=== PATIENT | male | born 1985 | race Caucasian/White ===

== ENCOUNTER 2016-11-14 06:57 | Day surgery (SDC) | payer OTHER ==
[~2016-11-14] VITALS: Ht 170.2 cm; Wt 100.1 kg
[~2016-11-14 06:57] MED LIST: None per pt; OXYC-306 PO
[2016-11-14] MEDS ORDERED: EPINEPHRINE 1 MG/ML, 1ML ONE (07:03)
[2016-11-14] MEDS ORDERED: NEOSPORIN OINT, 15GM ONE (07:03)
[2016-11-14] MEDS ORDERED: BUPIVACAINE/PF 0.5% ONE (07:03)
[2016-11-14 08:01] VITALS: BP 146/80
[2016-11-14] MEDS ORDERED: LIDOCAINE 1%, 2ML ONE (08:08)
[2016-11-14] MEDS ORDERED: LACTATED RINGERS 1,000 ML IV SCH (08:19)
[2016-11-14] MEDS ORDERED: LIDOCAINE 1%, 2ML SQ PRN (08:30)
[2016-11-14] MEDS ORDERED: FENTANYL PF 100 MCG/2ML ONE ×3 (09:30→10:54)
[2016-11-14] MEDS ORDERED: MIDAZOLAM 1 MG/ML, 2ML ONE (09:30)
[2016-11-14] MEDS ORDERED: ONDANSETRON 2MG/ML, 2ML ONE (09:31)
[2016-11-14] MEDS ORDERED: SUCCINYLCHOLINE 20 MG/ML, 10ML ONE (09:31)
[2016-11-14] MEDS ORDERED: ROCURONIUM 10 MG/ML ONE (09:31)
[2016-11-14] MEDS ORDERED: DEXAMETHASONE 4 MG/ML, 1ML ONE (09:31)
[2016-11-14] MEDS ORDERED: NEOSTIGMINE 1 MG/ML, 10ML ONE (09:31)
[2016-11-14] MEDS ORDERED: PROPOFOL 10 MG/ML, 50ML ONE (09:31)
[2016-11-14] MEDS ORDERED: GLYCOPYRROLATE 0.2MG/1ML ONE (09:31)
[2016-11-14] MEDS ORDERED: GENTAMICIN 80 MG/2 ML ONE (09:44)
[2016-11-14] MEDS ORDERED: KETAMINE 10 MG/ML, 20ML ONE (09:53)
[2016-11-14] MEDS ORDERED: ALBUTEROL SULFATE 2.5 MG/3 ML NPPB PRN (10:00)
[2016-11-14] MEDS ORDERED: KETOROLAC 30 MG/1 ML IV PRN (10:00)
[2016-11-14] MEDS ORDERED: PROMETHAZINE 25 MG/ML, 1ML IV PRN (10:00)
[2016-11-14] MEDS ORDERED: METOCLOPRAMIDE 5 MG/ML, 2ML IV PRN (10:00)
[2016-11-14] MEDS ORDERED: OXYcodone 5 MG/5 ML ORAL.SOL UDC PO PRN (10:00)
[2016-11-14] MEDS ORDERED: MEPERIDINE/PF 25MG/0.5ML IVPush PRN (10:00)
[2016-11-14] MEDS ORDERED: hydrALAzine 20 MG/ML, 1ML IV PRN (10:00)
[2016-11-14] MEDS ORDERED: ACETAMINOPHEN 325 MG TABLET PO PRN (10:00)
[2016-11-14] MEDS ORDERED: ONDANSETRON 2MG/ML, 2ML IVPush PRN (10:00)
[2016-11-14] MEDS ORDERED: LABETALOL 5MG/ML, 20ML IV PRN (10:00)
[2016-11-14] MEDS ORDERED: HYDROcodone/APAP 7.5-325MG/15ML UDC PO PRN (10:00)
[2016-11-14] MEDS ORDERED: METOPROLOL 1 MG/ML, 5ML IV PRN (10:00)
[2016-11-14] MEDS ORDERED: MIDAZOLAM 1 MG/ML, 2ML IV PRN (10:00)
[2016-11-14] MEDS ORDERED: EPHEDRINE 50 MG/ML, 1ML IVPush PRN (10:00)
[2016-11-14] MEDS ORDERED: OXYcodone 5 MG/5 ML ORAL.SOL UDC ONE (10:54)
[2016-11-14] MEDS: FENTANYL PF 100 MCG/2ML IV PRN ×2 (10:56→11:06)
[2016-11-14] MEDS ORDERED: KETOROLAC 30 MG/1 ML ONE (10:57)
[2016-11-14] MEDS ORDERED: LABETALOL 5MG/ML, 20ML ONE (11:16)
[2016-11-14] MEDS ORDERED: HYDROmorphone 2 MG/ML, 1ML ONE (11:18)
[2016-11-14] MEDS: HYDROmorphone 1 MG/ML, 1ML IV PRN ×3 (11:20→11:39)
[2016-11-14] MEDS ORDERED: hydrALAzine 20 MG/ML, 1ML ONE (11:35)
== END 2016-11-14 12:55 ==
LOC: OUT 06:57
PROVIDERS: ATTEND Urology
DX: C62.91 Malignant neoplasm of right testis, unspecified whether descended or undescended (principal)
CPT/HCPCS: 54530; 88309; J0171; J0330; J1100; J1170; J1580; J1885; J2250; J2405; J2704; J2710; J3010; J3490; J7120

== ENCOUNTER 2016-12-13 01:04 | Emergency (ER) | payer OTHER ==
[~2016-12-13] VITALS: Ht 170.2 cm; Wt 101.1 kg
[2016-12-13] MEDS ORDERED: OXYcodone/APAP 5/325MG TABLET PO ONE (01:30)
[2016-12-13] MEDS ORDERED: ONDANSETRON ODT 4 MG PO ONE (01:30)
[2016-12-13] MEDS ORDERED: IBUPROFEN 200 MG TABLET PO ONE (01:30)
[2016-12-13] MEDS ORDERED: DIAZEPAM 5 MG TABLET PO ONE (01:30)
[2016-12-13] MEDS ORDERED: ONDANSETRON ODT 4 MG ONE (01:40)
[2016-12-13] MEDS ORDERED: IBUPROFEN 200 MG TABLET ONE (01:41)
[2016-12-13] MEDS ORDERED: OXYcodone/APAP 5/325MG TABLET ONE (01:41)
[2016-12-13] MEDS ORDERED: DIAZEPAM 5 MG TABLET ONE ×2 (01:42)
[2016-12-13 01:50] LABS: HEMATOCRIT 44.4 % (39.2-51.8); HEMOGLOBIN 15.4 g/dL (13.7-18.0); WHITE BLOOD COUNT 10.1 x10^3/uL (3.4-10)
[2016-12-13 02:00] LABS: ASPARTATE AMINO TRANSFERASE 25 U/L (15-37); BLOOD UREA NITROGEN 17 mg/dL (7-18)
[2016-12-13 03:19] VITALS: BP 125/80
== END 2016-12-13 03:36 | disposition home or self-care (01) ==
LOC: ED 03:22
DX: M54.5 Low back pain (principal)
CPT/HCPCS: 36415; 72110; 80053; 81003; 85025; 99285; Q0162

== ENCOUNTER → 2017-01-04 | Outpatient (CLI) | payer OTHER ==
[~2017-01-04] MED LIST changes: +GADOBUTROL 10 MMOL/10 ML PFS ONE
== END | disposition home or self-care (01) ==
LOC: RAD 13:48
PROVIDERS: ATTEND Internal Medicine Hematology & Oncology
DX: G93.5 Compression of brain (principal); C62.11 Malignant neoplasm of descended right testis
CPT/HCPCS: 70553; A9585

== ENCOUNTER 2017-01-25 12:16 | Day surgery (SDC) | payer OTHER ==
[~2017-01-25] VITALS: Ht 170.2 cm; Wt 97.4 kg
[~2017-01-25 12:16] MED LIST changes: -GADOBUTROL 10 MMOL/10 ML PFS ONE; +OXYC1TAB8 PO
[2017-01-25 12:54] VITALS: BP 152/99
[2017-01-25] MEDS ORDERED: SODIUM CHLORIDE 0.9% 1,000 ML IV SCH (12:56)
[2017-01-25] MEDS ORDERED: CEFAZOLIN PMX 1GM/50ML 50 ML ONE (12:59)
[2017-01-25] MEDS ORDERED: FENTANYL PF 100 MCG/2ML ONE (16:08)
[2017-01-25] MEDS ORDERED: FLUMAZENIL 0.1 MG/1 ML, 5ML ONE (16:08)
[2017-01-25] MEDS ORDERED: NALOXONE 1 MG/ML, 2ML ONE (16:08)
[2017-01-25] MEDS ORDERED: MIDAZOLAM 1 MG/ML, 5ML ONE (16:08)
[2017-01-25] MEDS ORDERED: LIDOCAINE 2%, 20ML ONE (16:09)
== END 2017-01-25 18:10 ==
LOC: OUT 12:16
PROVIDERS: ATTEND Nurse Practitioner
DX: Z45.2 Encounter for adjustment and management of vascular access device (principal); C62.90 Malignant neoplasm of unspecified testis, unspecified whether descended or undescended
CPT/HCPCS: 36561; 76937; 77001; 99156; 99157; C1788; C1894; J0690; J1642; J2250; J3010; J3490; J2310

== ENCOUNTER → 2017-03-08 | Outpatient (CLI) | payer OTHER | END | disposition home or self-care (01) | LOC: CFH 11:37 | PROVIDERS: ATTEND Internal Medicine Hematology & Oncology | DX: C78.01 Secondary malignant neoplasm of right lung (principal); C62.11 Malignant neoplasm of descended right testis; J32.9 Chronic sinusitis, unspecified | CPT/HCPCS: 71020 ==

== ENCOUNTER 2017-04-01 11:11 | Emergency (ER) | payer OTHER ==
[~2017-04-01] VITALS: Ht 170.2 cm; Wt 99.8 kg
[2017-04-01] MEDS ORDERED: ONDA4TAB7 PO (11:49)
[2017-04-01] MEDS ORDERED: PANT20TA3 PO (11:49)
[2017-04-01] MEDS ORDERED: ONDANSETRON 2MG/ML, 2ML IVPush ONE (12:00)
[2017-04-01] MEDS ORDERED: LACTATED RINGERS 1,000 ML IVBOLUS ONE (12:00)
[2017-04-01] MEDS ORDERED: SODIUM CHLORIDE FLUSH 10ML SYR IVF ONE (12:00)
[2017-04-01 12:07] LABS: BASOPHILS # (AUTO) 0.03 x10^3/uL (0-0.1); BASOPHILS % (AUTO) 0 % (0-1); EOSINOPHILS # (AUTO) 0.08 x10^3/uL (0-0.4); EOSINOPHILS % (AUTO) 1 % (1-7); LYMPHOCYTES % (AUTO) 10 % (22-44); MD NO; MEAN CORPUSCULAR HEMOGLOBIN 31.3 pg (27.5-34.5); MEAN CORPUSCULAR HGB CONC 33.6 g/dL (33.2-36.2); MEAN PLATELET VOLUME 7.7 fL (7.4-10.4); MONOCYTES # (AUTO) 0.72 x10^3/uL (0.2-0.8); MONOCYTES % (AUTO) 7 % (2-9); NEUTROPHILS # (AUTO) 8.06 x10^3/uL (1.8-6.8); NEUTROPHILS % (AUTO) 82 % (42-75); PLATELET COUNT 207 x10^3/uL (130-400); RED BLOOD COUNT 4.27 x10^6/uL (4.38-5.82); RED CELL DISTRIBUTION WIDTH 19.9 % (9.4-14.8)
[2017-04-01 12:18] LABS: ALANINE AMINOTRANSFERASE 45 U/L (12-78); ALBUMIN 3.9 g/dL (3.4-5.0); ANION GAP 6 mmol/L (5-15); CALCIUM 8.8 mg/dL (8.5-10.1); CHLORIDE 107 mmol/L (98-107); CREATININE 0.94 mg/dL (0.7-1.3)
[2017-04-01 12:21] LABS: ALKALINE PHOSPHATASE 63 U/L (45-117); BILIRUBIN,TOTAL 0.7 mg/dL (0.2-1.0); TOTAL PROTEIN 7.4 g/dL (6.4-8.2)
[2017-04-01 12:45] VITALS: BP 130/87
== END 2017-04-01 13:47 | disposition home or self-care (01) ==
LOC: ED 12:00
DX: E86.0 Dehydration (principal); R19.7 Diarrhea, unspecified; R11.2 Nausea with vomiting, unspecified; Z85.47 Personal history of malignant neoplasm of testis; Z90.49 Acquired absence of other specified parts of digestive tract
CPT/HCPCS: 36415; 80053; 83690; 85025; 99284; J7120

== ENCOUNTER 2017-04-01 16:58 | Inpatient (IN) | payer OTHER ==
[~2017-04-01] VITALS: Ht 170.2 cm; Wt 98.1 kg
[~2017-04-01 16:58] MED LIST changes: +ONDA4TAB7 PO; +PANT20TA3 PO
[2017-04-01] MEDS ORDERED: SODIUM CHLORIDE 0.9% 1,000ML IVBOLUS ONE (17:30)
[2017-04-01] MEDS ORDERED: SODIUM CHLORIDE FLUSH 10ML SYR IVF ONE (17:30)
[2017-04-01] MEDS ORDERED: ACETAMINOPHEN 500 MG TABLET PO ONE (17:30)
[2017-04-01] MEDS ORDERED: ONDANSETRON 2MG/ML, 2ML IVPush ONE (17:30)
[2017-04-01] MEDS ORDERED: ONDANSETRON 2MG/ML, 2ML ONE (17:35)
[2017-04-01] MEDS ORDERED: ACETAMINOPHEN 500 MG TABLET ONE (17:35)
[2017-04-01 17:46] LABS: BASOPHILS # (AUTO) 0.04 x10^3/uL (0-0.1); BASOPHILS % (AUTO) 0 % (0-1); EOSINOPHILS # (AUTO) 0.01 x10^3/uL (0-0.4); EOSINOPHILS % (AUTO) 0 % (1-7); LYMPHOCYTES # (AUTO) 0.79 x10^3/uL (1-3.4); LYMPHOCYTES % (AUTO) 7 % (22-44); MD NO; MEAN CORPUSCULAR HEMOGLOBIN 31.6 pg (27.5-34.5); MEAN CORPUSCULAR VOLUME 92.8 fL (81-97); MEAN PLATELET VOLUME 7.8 fL (7.4-10.4); MONOCYTES # (AUTO) 0.76 x10^3/uL (0.2-0.8); MONOCYTES % (AUTO) 6 % (2-9); NEUTROPHILS # (AUTO) 10.39 x10^3/uL (1.8-6.8); NEUTROPHILS % (AUTO) 87 % (42-75); PLATELET COUNT 233 x10^3/uL (130-400); RED BLOOD COUNT 4.39 x10^6/uL (4.38-5.82); RED CELL DISTRIBUTION WIDTH 20.1 % (9.4-14.8)
[2017-04-01 17:53] LABS: ALBUMIN 4.1 g/dL (3.4-5.0); ANION GAP 8 mmol/L (5-15); CALCIUM 9.4 mg/dL (8.5-10.1); CHLORIDE 105 mmol/L (98-107)
[2017-04-01] MEDS ORDERED: OMNIPAQUE 350 MG/ML, 100ML BOTTLE ONE (18:00)
[2017-04-01] MEDS ORDERED: MORPHINE SULFATE 4 MG/ML, 1ML IVPush PRN (18:00)
[2017-04-01] MEDS ORDERED: SODIUM CHLORIDE 0.9%, 500ML IVBOLUS ONE (18:00)
[2017-04-01 18:09] LABS: RAPID INFLUENZA A Negative (Negative); RAPID INFLUENZA B Negative (Negative)
[2017-04-01 18:46] LABS: INTERNATIONAL NORMALIZED RATIO 0.99 (0.93-1.1); PROTHROMBIN TIME 10.3 Seconds (9.6-11.5)
[2017-04-01] MEDS ORDERED: ONDANSETRON 2MG/ML, 2ML IVPush PRN (19:30)
[2017-04-01 21:14] LABS: MICROSCOPIC NOT IND
[2017-04-01 21:16] LABS: CULTURE INDICATED? NO
[2017-04-01 21:50] VITALS: BP 135/76
[2017-04-01] MEDS: SODIUM CHLORIDE 0.9% 1,000 ML IV SCH (22:31)
[2017-04-01] MEDS: ACETAMINOPHEN 325 MG TABLET PO PRN (22:31)
[2017-04-02 03:05] VITALS: BP 119/73
[2017-04-02] MEDS: morphine SULFATE 10 MG/ML, 1ML IVPush PRN ×2 (05:06→21:06)
[2017-04-02 05:24] LABS: BASOPHILS # (AUTO) 0.02 x10^3/uL (0-0.1); BASOPHILS % (AUTO) 0 % (0-1); EOSINOPHILS # (AUTO) 0.01 x10^3/uL (0-0.4); EOSINOPHILS % (AUTO) 0 % (1-7); LYMPHOCYTES # (AUTO) 1.08 x10^3/uL (1-3.4); LYMPHOCYTES % (AUTO) 14 % (22-44); MD NO; MEAN CORPUSCULAR HEMOGLOBIN 31.8 pg (27.5-34.5); MEAN CORPUSCULAR HGB CONC 34.3 g/dL (33.2-36.2); MEAN CORPUSCULAR VOLUME 92.7 fL (81-97); MEAN PLATELET VOLUME 7.7 fL (7.4-10.4); MONOCYTES % (AUTO) 12 % (2-9); NEUTROPHILS # (AUTO) 5.67 x10^3/uL (1.8-6.8); NEUTROPHILS % (AUTO) 74 % (42-75); PLATELET COUNT 162 x10^3/uL (130-400); RED BLOOD COUNT 3.72 x10^6/uL (4.38-5.82); RED CELL DISTRIBUTION WIDTH 19.9 % (9.4-14.8)
[2017-04-02 05:25] LABS: CHLORIDE 109 mmol/L (98-107)
[2017-04-02 05:33] LABS: ALANINE AMINOTRANSFERASE 34 U/L (12-78); ALBUMIN 3.2 g/dL (3.4-5.0); ALKALINE PHOSPHATASE 56 U/L (45-117); ANION GAP 5 mmol/L (5-15); CALCIUM 8.1 mg/dL (8.5-10.1); CREATININE 0.84 mg/dL (0.7-1.3); TOTAL PROTEIN 6.4 g/dL (6.4-8.2)
[2017-04-02] MEDS: SODIUM CHLORIDE 0.9% 1,000 ML IV SCH ×3 (06:07→21:50)
[2017-04-02 06:37] VITALS: BP 121/71
[2017-04-02] MEDS: PANTOPRAZOLE 20MG TABLET PO SCH (09:36)
[2017-04-02 12:06] LABS: CLOSTRIDIUM DIFFICILE ANTIGEN NEGATIVE; CLOSTRIDIUM DIFFICILE TOXIN NEGATIVE (Negative); CRYPTOSPORIDIUM ANTIGEN Negative (Negative)
[2017-04-02 12:50] VITALS: BP 116/67
[2017-04-02 19:33] VITALS: BP 128/77
[2017-04-03 01:21] VITALS: BP 137/81
[2017-04-03] MEDS: morphine SULFATE 10 MG/ML, 1ML IVPush PRN ×2 (04:49→21:17)
[2017-04-03 05:00] LABS: MEAN CORPUSCULAR HGB CONC 34.4 g/dL (33.2-36.2); MEAN CORPUSCULAR VOLUME 92.9 fL (81-97); MEAN PLATELET VOLUME 7.7 fL (7.4-10.4); PLATELET COUNT 176 x10^3/uL (130-400); RED BLOOD COUNT 3.91 x10^6/uL (4.38-5.82); RED CELL DISTRIBUTION WIDTH 19.4 % (9.4-14.8)
[2017-04-03 05:05] LABS: ALANINE AMINOTRANSFERASE 35 U/L (12-78); ALBUMIN 3.2 g/dL (3.4-5.0); ANION GAP 5 mmol/L (5-15); CALCIUM 8.3 mg/dL (8.5-10.1); CHLORIDE 107 mmol/L (98-107); CREATININE 0.69 mg/dL (0.7-1.3)
[2017-04-03 05:07] LABS: ALKALINE PHOSPHATASE 55 U/L (45-117); BILIRUBIN,TOTAL 0.8 mg/dL (0.2-1.0); TOTAL PROTEIN 6.4 g/dL (6.4-8.2)
[2017-04-03] MEDS: SODIUM CHLORIDE 0.9% 1,000 ML IV SCH ×2 (05:35→17:48)
[2017-04-03 05:47] LABS: BASOPHILS # (AUTO) 0.03 x10^3/uL (0-0.1); BASOPHILS % (AUTO) 0 % (0-1); EOSINOPHILS # (AUTO) 0.02 x10^3/uL (0-0.4); EOSINOPHILS % (AUTO) 0 % (1-7); LYMPHOCYTES # (AUTO) 1.23 x10^3/uL (1-3.4); LYMPHOCYTES % (AUTO) 13 % (22-44); MD SCAN; MONOCYTES # (AUTO) 0.97 x10^3/uL (0.2-0.8); MONOCYTES % (AUTO) 10 % (2-9); NEUTROPHILS # (AUTO) 7.22 x10^3/uL (1.8-6.8); NEUTROPHILS % (AUTO) 76 % (42-75)
[2017-04-03 06:40] VITALS: BP 122/73
[2017-04-03] MEDS: PANTOPRAZOLE 20MG TABLET PO SCH (08:04)
[2017-04-03 13:00] VITALS: BP 123/77
[2017-04-03 19:14] VITALS: BP 128/85
[2017-04-03] MEDS: ACETAMINOPHEN 325 MG TABLET PO PRN (19:45)
[2017-04-03] MEDS ORDERED: MORPHINE SULFATE 4 MG/ML, 1ML ONE (21:13)
[2017-04-04] MEDS: SODIUM CHLORIDE 0.9% 1,000 ML IV SCH ×2 (00:17→08:30)
[2017-04-04] MEDS: morphine SULFATE 10 MG/ML, 1ML IVPush PRN (02:49)
[2017-04-04 02:58] LABS: BASOPHILS # (AUTO) 0.02 x10^3/uL (0-0.1); BASOPHILS % (AUTO) 0 % (0-1); EOSINOPHILS # (AUTO) 0.05 x10^3/uL (0-0.4); EOSINOPHILS % (AUTO) 1 % (1-7); LYMPHOCYTES # (AUTO) 1.74 x10^3/uL (1-3.4); LYMPHOCYTES % (AUTO) 26 % (22-44); MD NO; MEAN CORPUSCULAR HEMOGLOBIN 31.7 pg (27.5-34.5); MEAN CORPUSCULAR HGB CONC 34.4 g/dL (33.2-36.2); MEAN CORPUSCULAR VOLUME 92.4 fL (81-97); MEAN PLATELET VOLUME 7.7 fL (7.4-10.4); MONOCYTES # (AUTO) 1.07 x10^3/uL (0.2-0.8); MONOCYTES % (AUTO) 16 % (2-9); NEUTROPHILS # (AUTO) 3.89 x10^3/uL (1.8-6.8); NEUTROPHILS % (AUTO) 57 % (42-75); PLATELET COUNT 160 x10^3/uL (130-400); RED BLOOD COUNT 3.76 x10^6/uL (4.38-5.82); RED CELL DISTRIBUTION WIDTH 19.1 % (9.4-14.8)
[2017-04-04 03:25] VITALS: BP 128/78
[2017-04-04 06:43] VITALS: BP 127/78
[2017-04-04] MEDS: PANTOPRAZOLE 20MG TABLET PO SCH (09:00)
== END 2017-04-04 10:14 | disposition home or self-care (01) | DRG 392 ==
LOC: ED 18:29 → EDIP 19:03 → 3NW 21:27
PROVIDERS: ADMIT Internal Medicine; ATTEND Internal Medicine
PROC: 02HV33Z Insertion of Infusion Device into Superior Vena Cava, Percutaneous Approach (ICD-10-PCS; principal; 2017-04-03)
DX: A08.4 Viral intestinal infection, unspecified (principal); R65.10 Systemic inflammatory response syndrome (SIRS) of non-infectious origin without acute organ dysfunction; K60.2 Anal fissure, unspecified; D64.9 Anemia, unspecified; M54.9 Dorsalgia, unspecified; Z85.47 Personal history of malignant neoplasm of testis; Z92.21 Personal history of antineoplastic chemotherapy; Z88.0 Allergy status to penicillin
CPT/HCPCS: 36415; 71045; 74177; 80048; 80053; 81003; 82040; 83605; 85025; 85610; 87040; 87046; 87324; 87328; 87329; 87400; 87899; 89055; 96361; 96374; J2405; Q9967; J2270; J7030; J7040

== ENCOUNTER → 2017-05-10 | Outpatient (CLI) | payer OTHER ==
[~2017-05-10] MED LIST changes: +None at this time
[2017-05-10 12:31] LABS: BASOPHILS # (AUTO) 0.02 x10^3/uL (0-0.1); BASOPHILS % (AUTO) 0 % (0-1); EOSINOPHILS # (AUTO) 0.11 x10^3/uL (0-0.4); EOSINOPHILS % (AUTO) 2 % (1-7); LYMPHOCYTES # (AUTO) 2.22 x10^3/uL (1-3.4); LYMPHOCYTES % (AUTO) 31 % (22-44); MD NO; MEAN CORPUSCULAR HGB CONC 34.1 g/dL (33.2-36.2); MEAN PLATELET VOLUME 7.4 fL (7.4-10.4); MONOCYTES # (AUTO) 0.55 x10^3/uL (0.2-0.8); MONOCYTES % (AUTO) 8 % (2-9); NEUTROPHILS % (AUTO) 60 % (42-75); PLATELET COUNT 187 x10^3/uL (130-400); RED CELL DISTRIBUTION WIDTH 13.6 % (9.4-14.8)
[2017-05-10 12:40] LABS: PROTHROMBIN TIME 10.3 Seconds (9.6-11.5)
[2017-05-10 12:43] LABS: ALANINE AMINOTRANSFERASE 61 U/L (12-78); ANION GAP 7 mmol/L (5-15); CALCIUM 9.2 mg/dL (8.5-10.1); CHLORIDE 103 mmol/L (98-107)
[2017-05-10 12:48] LABS: ALKALINE PHOSPHATASE 62 U/L (45-117); BILIRUBIN,TOTAL 0.7 mg/dL (0.2-1.0); TOTAL PROTEIN 7.7 g/dL (6.4-8.2)
[2017-05-10 13:18] LABS: MICROSCOPIC NOT IND
== END | disposition home or self-care (01) ==
LOC: STAR 11:09
PROVIDERS: ATTEND Urology
DX: Z01.818 Encounter for other preprocedural examination (principal); C62.90 Malignant neoplasm of unspecified testis, unspecified whether descended or undescended; R94.31 Abnormal electrocardiogram [ECG] [EKG]
CPT/HCPCS: 36415; 80053; 81003; 82105; 83615; 84702; 85025; 85610; 85730; 87086; 93005

== ENCOUNTER 2017-09-13 07:06 | Day surgery (SDC) | payer OTHER ==
[2017-09-11 09:43] VITALS: BP 135/85
[2017-09-11 10:16] LABS: BASOPHILS # (AUTO) 0.02 x10^3/uL (0-0.1); BASOPHILS % (AUTO) 0 % (0-1); EOSINOPHILS # (AUTO) 0.07 x10^3/uL (0-0.4); EOSINOPHILS % (AUTO) 1 % (1-7); LYMPHOCYTES # (AUTO) 1.91 x10^3/uL (1-3.4); LYMPHOCYTES % (AUTO) 32 % (22-44); MD NO; MEAN CORPUSCULAR HEMOGLOBIN 30.5 pg (27.5-34.5); MEAN CORPUSCULAR HGB CONC 34.2 g/dL (33.2-36.2); MEAN CORPUSCULAR VOLUME 89.1 fL (81-97); MEAN PLATELET VOLUME 7.3 fL (7.4-10.4); MONOCYTES # (AUTO) 0.38 x10^3/uL (0.2-0.8); MONOCYTES % (AUTO) 7 % (2-9); NEUTROPHILS # (AUTO) 3.57 x10^3/uL (1.8-6.8); NEUTROPHILS % (AUTO) 60 % (42-75); PLATELET COUNT 192 x10^3/uL (130-400); RED BLOOD COUNT 5.27 x10^6/uL (4.38-5.82); RED CELL DISTRIBUTION WIDTH 12.8 % (9.4-14.8)
[2017-09-11 10:17] LABS: INTERNATIONAL NORMALIZED RATIO 0.95 (0.93-1.1); PROTHROMBIN TIME 9.8 Seconds (9.6-11.5)
[2017-09-11 10:20] LABS: ALANINE AMINOTRANSFERASE 33 U/L (12-78); ANION GAP 5 mmol/L (5-15); CHLORIDE 107 mmol/L (98-107)
[2017-09-11 10:23] LABS: ALKALINE PHOSPHATASE 72 U/L (45-117); BILIRUBIN,TOTAL 0.5 mg/dL (0.2-1.0); TOTAL PROTEIN 7.5 g/dL (6.4-8.2)
[~2017-09-13] VITALS: Ht 170.2 cm; Wt 95.5 kg
[~2017-09-13 07:06] MED LIST changes: +METO25TA35 PO; +METR500T PO; +OXYC-302 PO
[2017-09-13] MEDS ORDERED: SODIUM CHLORIDE 0.9% 1,000 ML IV SCH (07:37)
[2017-09-13] MEDS ORDERED: FENTANYL PF 100 MCG/2ML ONE (08:24)
[2017-09-13] MEDS ORDERED: LIDOCAINE-MPF 2% ,5ML ONE (08:25)
[2017-09-13] MEDS ORDERED: MIDAZOLAM 1 MG/ML, 5ML ONE (08:25)
[2017-09-13] MEDS ORDERED: ISOPROTERENOL 0.2MG/ML, 5ML ONE (08:25)
[2017-09-13] MEDS ORDERED: ADENOSINE 6 MG/2 ML ONE (08:25)
== END 2017-09-13 14:31 | disposition home or self-care (01) ==
LOC: CACL 07:06
PROVIDERS: ATTEND Internal Medicine Cardiovascular Disease
DX: I47.1 Supraventricular tachycardia (principal); Z88.5 Allergy status to narcotic agent; Z88.6 Allergy status to analgesic agent
CPT/HCPCS: 36415; 71046; 80053; 85025; 85610; 85730; 93613; 93620; 93621; 93623; 99156; 99157; C1730; C1894; C2630; J0153; J2250; J3010; J3490

== ENCOUNTER 2017-10-15 09:47 | Emergency (ER) | payer OTHER ==
[~2017-10-15] VITALS: Ht 170.2 cm; Wt 98.0 kg
[2017-10-15 11:38] LABS: BASOPHILS # (AUTO) 0.02 x10^3/uL (0-0.1); BASOPHILS % (AUTO) 0 % (0-1); EOSINOPHILS # (AUTO) 0.06 x10^3/uL (0-0.4); EOSINOPHILS % (AUTO) 1 % (1-7); LYMPHOCYTES % (AUTO) 31 % (22-44); MD NO; MEAN CORPUSCULAR HEMOGLOBIN 31.7 pg (27.5-34.5); MEAN CORPUSCULAR HGB CONC 35.4 g/dL (33.2-36.2); MEAN CORPUSCULAR VOLUME 89.5 fL (81-97); MEAN PLATELET VOLUME 7.6 fL (7.4-10.4); MONOCYTES # (AUTO) 0.52 x10^3/uL (0.2-0.8); MONOCYTES % (AUTO) 7 % (2-9); NEUTROPHILS # (AUTO) 4.44 x10^3/uL (1.8-6.8); NEUTROPHILS % (AUTO) 61 % (42-75); PLATELET COUNT 195 x10^3/uL (130-400); RED BLOOD COUNT 5.06 x10^6/uL (4.38-5.82); RED CELL DISTRIBUTION WIDTH 12.4 % (9.4-14.8)
[2017-10-15 11:50] LABS: ALBUMIN 3.7 g/dL (3.4-5.0); ANION GAP 6 mmol/L (5-15); CALCIUM 8.6 mg/dL (8.5-10.1); CHLORIDE 112 mmol/L (98-107); CREATININE 0.91 mg/dL (0.7-1.3)
[2017-10-15] MEDS ORDERED: OMNIPAQUE 350 MG/ML, 100ML BOTTLE ONE (12:26)
[2017-10-15] MEDS ORDERED: SODIUM CHLORIDE FLUSH 10ML SYR IVF ONE (12:30)
[2017-10-15 13:24] VITALS: BP 121/69
== END 2017-10-15 13:27 | disposition home or self-care (01) ==
LOC: ED 13:21
DX: S46.811A Strain of other muscles, fascia and tendons at shoulder and upper arm level, right arm, initial encounter (principal); X58.XXXA Exposure to other specified factors, initial encounter; Y93.89 Activity, other specified; Y99.8 Other external cause status; Y92.89 Other specified places as the place of occurrence of the external cause
CPT/HCPCS: 36415; 71260; 74177; 80048; 82040; 85025; 99285; Q9967

== ENCOUNTER 2018-02-28 13:33 | Emergency (ER) | payer OTHER ==
[~2018-02-28] VITALS: Ht 170.2 cm; Wt 94.0 kg
[2018-02-28] MEDS ORDERED: SODIUM CHLORIDE FLUSH 10ML SYR IVF ONE (14:30)
[2018-02-28] MEDS ORDERED: ONDANSETRON 2MG/ML, 2ML IVPush ONE (14:30)
[2018-02-28] MEDS ORDERED: MORPHINE SULFATE 4 MG/ML, 1ML IVPush PRN (14:30)
[2018-02-28] MEDS ORDERED: ONDANSETRON 2MG/ML, 2ML ONE (14:42)
[2018-02-28] MEDS ORDERED: MORPHINE SULFATE 4 MG/ML, 1ML ONE (14:43)
[2018-02-28] MEDS ORDERED: metoprolol (14:49)
[2018-02-28 14:54] LABS: BASOPHILS # (AUTO) 0.01 x10^3/uL (0-0.1); BASOPHILS % (AUTO) 0 % (0-1); EOSINOPHILS # (AUTO) 0.02 x10^3/uL (0-0.4); EOSINOPHILS % (AUTO) 0 % (1-7); LYMPHOCYTES # (AUTO) 2.31 x10^3/uL (1-3.4); LYMPHOCYTES % (AUTO) 27 % (22-44); MD NO; MEAN CORPUSCULAR HEMOGLOBIN 31.1 pg (27.5-34.5); MEAN CORPUSCULAR HGB CONC 34.3 g/dL (33.2-36.2); MEAN CORPUSCULAR VOLUME 90.7 fL (81-97); MEAN PLATELET VOLUME 7.4 fL (7.4-10.4); MONOCYTES # (AUTO) 0.44 x10^3/uL (0.2-0.8); MONOCYTES % (AUTO) 5 % (2-9); NEUTROPHILS # (AUTO) 5.74 x10^3/uL (1.8-6.8); NEUTROPHILS % (AUTO) 67 % (42-75); PLATELET COUNT 223 x10^3/uL (130-400); RED BLOOD COUNT 5.49 x10^6/uL (4.38-5.82); RED CELL DISTRIBUTION WIDTH 12.5 % (9.4-14.8)
[2018-02-28 14:57] LABS: MICROSCOPIC NOT IND
[2018-02-28 15:00] LABS: ANION GAP 10 mmol/L (5-15); CALCIUM 9.8 mg/dL (8.5-10.1); CHLORIDE 105 mmol/L (98-107)
[2018-02-28 15:04] LABS: CULTURE INDICATED? NO
[2018-02-28] MEDS ORDERED: OMNIPAQUE 350 MG/ML, 100ML BOTTLE ONE (15:28)
[2018-02-28 16:31] VITALS: BP 129/82
== END 2018-02-28 17:03 | disposition home or self-care (01) ==
LOC: ED 16:44
DX: S39.012A Strain of muscle, fascia and tendon of lower back, initial encounter (principal); R25.2 Cramp and spasm; Z87.19 Personal history of other diseases of the digestive system; X58.XXXA Exposure to other specified factors, initial encounter; Y93.89 Activity, other specified; Y92.89 Other specified places as the place of occurrence of the external cause; Y99.8 Other external cause status
CPT/HCPCS: 36415; 74177; 80048; 81003; 82040; 85025; 96374; 96375; 99284; J2405; Q9967

== ENCOUNTER 2018-07-22 08:47 | Emergency (ER) | payer OTHER ==
[~2018-07-22] VITALS: Ht 170.2 cm; Wt 97.0 kg
[~2018-07-22 08:47] MED LIST changes: +metoprolol
[2018-07-22 08:54] VITALS: BP 143/78
--- NOTE | 2018-07-22 09:24 | NUR ---
2 MONTHS AGO NOTICED BUMP ABOVE UMBILICOUS, SHARP CONTINUOUS ABDOMINAL PAIN WORSE WITH MOVEMENT STARTED THIS MORNING AT 3 AM. VOMITING INTERMITTENT STARTED IN FEBRUARY
--- NOTE | 2018-07-22 09:38 | NUR ---
TO CT VIA [facility]
--- NOTE | 2018-07-22 10:11 | NUR ---
PT AWAITING CT RESULTS. NO DISTRESS
== END 2018-07-22 10:26 | disposition home or self-care (01) ==
LOC: ED 10:20
DX: K43.9 Ventral hernia without obstruction or gangrene (principal); R10.13 Epigastric pain; R10.12 Left upper quadrant pain
CPT/HCPCS: 74176; 99284

== ENCOUNTER → 2018-08-06 | Outpatient (CLI) | payer OTHER ==
[~2018-08-06] MED LIST changes: +METO-93 PO
[2018-08-06 09:39] LABS: BASOPHILS # (AUTO) 0.02 x10^3/uL (0-0.1); BASOPHILS % (AUTO) 0 % (0-1); EOSINOPHILS # (AUTO) 0.09 x10^3/uL (0-0.4); EOSINOPHILS % (AUTO) 1 % (1-7); LYMPHOCYTES # (AUTO) 1.98 x10^3/uL (1-3.4); LYMPHOCYTES % (AUTO) 29 % (22-44); MD NO; MEAN CORPUSCULAR HEMOGLOBIN 31.4 pg (27.5-34.5); MEAN CORPUSCULAR HGB CONC 34.9 g/dL (33.2-36.2); MEAN CORPUSCULAR VOLUME 89.9 fL (81-97); MEAN PLATELET VOLUME 7.5 fL (7.4-10.4); MONOCYTES # (AUTO) 0.45 x10^3/uL (0.2-0.8); MONOCYTES % (AUTO) 7 % (2-9); NEUTROPHILS # (AUTO) 4.25 x10^3/uL (1.8-6.8); NEUTROPHILS % (AUTO) 63 % (42-75); PLATELET COUNT 187 x10^3/uL (130-400); RED BLOOD COUNT 5.48 x10^6/uL (4.38-5.82); RED CELL DISTRIBUTION WIDTH 12.6 % (9.4-14.8)
[2018-08-06 09:44] LABS: ALANINE AMINOTRANSFERASE 36 U/L (12-78); ALBUMIN 4.3 g/dL (3.4-5.0); ANION GAP 6 mmol/L (5-15); CALCIUM 9.4 mg/dL (8.5-10.1); CHLORIDE 107 mmol/L (98-107); CREATININE 0.98 mg/dL (0.7-1.3)
[2018-08-06 09:47] LABS: ALKALINE PHOSPHATASE 65 U/L (45-117); BILIRUBIN,TOTAL 0.8 mg/dL (0.2-1.0); TOTAL PROTEIN 7.7 g/dL (6.4-8.2)
== END | disposition home or self-care (01) ==
LOC: STAR 08:36
PROVIDERS: ATTEND Surgery
DX: Z01.818 Encounter for other preprocedural examination (principal); K43.2 Incisional hernia without obstruction or gangrene; I21.9 Acute myocardial infarction, unspecified
CPT/HCPCS: 36415; 80053; 85025; 93005

== ENCOUNTER 2019-01-17 11:18 | Emergency (ER) | payer SELFPAY ==
[~2019-01-17] VITALS: Ht 170.2 cm; Wt 92.0 kg
--- NOTE | 2019-01-17 11:57 | NUR ---
PT TO ED FOR SWOLEN LEFT TESTICLE X1 MONTH INTERMITTENT, WORSE LAST WEEK. PT ENDORSES PAIN, N/V. PT CONNECTE DTO MONITORS. VSS. NO NEEDS EXPRESSED. DR. MARTINEZ TO BS FOR ASSESSMENT. AWAWITING ORDERS.
[2019-01-17] MEDS ORDERED: HYDROmorphone 2 MG/ML, 1ML IM ONE (12:00)
[2019-01-17] MEDS ORDERED: ONDANSETRON ODT 4 MG PO ONE (12:00)
[2019-01-17] MEDS ORDERED: ONDANSETRON 2MG/ML, 2ML ONE (12:01)
[2019-01-17] MEDS ORDERED: HYDROmorphone 1 MG/ML, 1ML VIAL ONE (12:01)
[2019-01-17] MEDS ORDERED: HYDROmorphone 1 MG/ML, 1ML INJ IV ONE (12:30)
[2019-01-17 12:35] LABS: BASOPHILS # (AUTO) 0.02 x10^3/uL (0-0.1); BASOPHILS % (AUTO) 0 % (0-1); EOSINOPHILS # (AUTO) 0.02 x10^3/uL (0-0.4); EOSINOPHILS % (AUTO) 0 % (1-7); LYMPHOCYTES # (AUTO) 1.53 x10^3/uL (1-3.4); LYMPHOCYTES % (AUTO) 19 % (22-44); MD NO; MEAN CORPUSCULAR HEMOGLOBIN 30.9 pg (27.5-34.5); MEAN CORPUSCULAR HGB CONC 34.1 g/dL (33.2-36.2); MEAN CORPUSCULAR VOLUME 90.4 fL (81-97); MEAN PLATELET VOLUME 7.3 fL (7.4-10.4); MONOCYTES # (AUTO) 0.41 x10^3/uL (0.2-0.8); MONOCYTES % (AUTO) 5 % (2-9); NEUTROPHILS # (AUTO) 5.92 x10^3/uL (1.8-6.8); NEUTROPHILS % (AUTO) 75 % (42-75); PLATELET COUNT 199 x10^3/uL (130-400); RED BLOOD COUNT 5.33 x10^6/uL (4.38-5.82)
[2019-01-17 13:08] LABS: ALANINE AMINOTRANSFERASE 30 U/L (12-78); ALBUMIN 4.3 g/dL (3.4-5.0); ANION GAP 6 mmol/L (5-15); CHLORIDE 108 mmol/L (98-107); CREATININE 1.12 mg/dL (0.7-1.3)
[2019-01-17 13:09] VITALS: BP 131/74
[2019-01-17 13:10] LABS: ALKALINE PHOSPHATASE 64 U/L (45-117); BILIRUBIN,TOTAL 0.7 mg/dL (0.2-1.0); TOTAL PROTEIN 7.4 g/dL (6.4-8.2)
--- NOTE | 2019-01-17 13:13 | NUR ---
pt resting in room. vss. pt was able to provide urine. ua sample collected and sent. us complete. awaiting resutls.
[2019-01-17 13:22] LABS: MICROSCOPIC NOT IND
[2019-01-17] MEDS ORDERED: SODIUM CHLORIDE 0.9% 1,000ML IVBOLUS ONE (13:30)
[2019-01-17 13:49] LABS: CULTURE INDICATED? NO
[2019-01-17] MEDS ORDERED: KETOROLAC 30 MG/1 ML ONE (13:58)
[2019-01-17] MEDS ORDERED: KETOROLAC 30 MG/1 ML IM ONE (14:00)
== END 2019-01-17 14:10 | disposition home or self-care (01) ==
LOC: ED 13:22
DX: N50.812 Left testicular pain (principal); I47.1 Supraventricular tachycardia; R11.2 Nausea with vomiting, unspecified; R19.7 Diarrhea, unspecified
CPT/HCPCS: 36415; 76870; 80053; 81003; 85025; 96361; 96372; 96374; 99284; J1170; J1885; J7030; Q0162

== ENCOUNTER 2019-10-17 13:45 | Emergency (ER) | payer OTHER ==
[~2019-10-17] VITALS: Ht 172.7 cm; Wt 90.0 kg
[2019-10-17 14:00] VITALS: BP 147/88
--- NOTE | 2019-10-17 14:29 | NUR ---
PT AMBULATED TO ROOM 31 C/O SUDDEN ONSET HEADACHE SINCE 299. PT DENIES ANY HX OF SAME. PT A&OX4, NO UNILATERAL DEFICIT Addendum: 10/17/19 at 1430 by MICHAEL (CONTINUATION OF LAST NOTE) DEFECITS* NOTED. PT C/O NUMBNESS TO TIPS OF FINGERS. STRENGTH IN EXTREMITIES APPROPRIATE. MONITORS IN PLACE. PT BEING TRANSPORTED TO [place] AT THIS TIME.
== END 2019-10-17 15:38 | disposition home or self-care (01) ==
LOC: ED 15:20
DX: R51 Headache (principal); R20.0 Anesthesia of skin; R94.31 Abnormal electrocardiogram [ECG] [EKG]; Z90.89 Acquired absence of other organs; Z85.47 Personal history of malignant neoplasm of testis
CPT/HCPCS: 70450; 93005; 99284